=== PATIENT | male | born 1995 | race Two or more races ===

== ENCOUNTER 2021-04-05 23:59 | Emergency (ER) | payer BC ==
[~2021-04-05] VITALS: Ht 182.9 cm; Wt 237.6 kg
[2021-04-06] MEDS ORDERED: KETOROLAC TROMETHAMINE 30 MG/ML VIAL IM ONE (00:45)
[2021-04-06 00:54] VITALS: BP 119/62
== END 2021-04-06 01:03 | disposition home or self-care (01) ==
LOC: EMS 23:59
DX: S82.832A Other fracture of upper and lower end of left fibula, initial encounter for closed fracture (principal); X50.1XXA Overexertion from prolonged static or awkward postures, initial encounter; Y93.61 Activity, american tackle football; Y92.89 Other specified places as the place of occurrence of the external cause; Y99.8 Other external cause status
CPT/HCPCS: 29515; 73610; 96372; 99283; J1885